=== PATIENT | female | born 1950 | race Caucasian/White ===

== ENCOUNTER 2018-08-04 19:36 | Observation (INO) | payer MEDICARE, OTHER ==
[~2018-08-04] VITALS: Ht 170.2 cm; Wt 71.9 kg
[2018-08-04] MEDS ORDERED: SOD CHLORIDE 0.9% 500 ML IV STA (20:26)
[2018-08-04] MEDS ORDERED: LIDOCAINE 4% CR TOP STA (20:40)
[2018-08-04] MEDS ORDERED: SOD CHLORIDE 0.9% 0 ML IV ONE (22:18)
--- NOTE | 2018-08-04 22:18 | ERD ---
ER Documentation Chief Complaint Chief Complaint GENERALIZED WEAKNESS STARTED 3-4 DAYS AGO; HX BLOOD TRANSFUSION HPI 67-year-old female history of inflammatory bowel disease with history of recurrent blood loss requiring transfusion who presents with generalized weakness and fatigue over the last several days. She states this feels very similar to episodes of blood loss in the past. Patient denies any fevers or chills or chest pain or shortness of breath. Generalized fatigue is noted. ROS All systems reviewed and are negative except as per history of present illness. Allergies Allergies: Coded Allergies: Penicillins (Verified Allergy, Unknown, 08/16/13) aspirin (Verified Allergy, Unknown, 08/06/13) PMhx/Soc History of Surgery: Yes (cholecytectomy) Anesthesia Reaction: No Hx Neurological Disorder: No Hx Respiratory Disorders: Yes (asthma) Hx Cardiac Disorders: Yes (hypotension,) Hx Psychiatric Problems: No Hx Miscellaneous Medical Probl: Yes (colitis; anemia) Hx Alcohol Use: No Hx Substance Use: No Hx Tobacco Use: No Smoking Status: Never smoker Physical Exam Vitals Vital Signs Date Temp Pulse Resp B/P (MAP) Pulse Ox O2 O2 Flow FiO2 Time Delivery Rate 08/04/18 98.3 94 20 112/51 95 19:42 (71) Physical Exam General: Pallor Head: Normocephalic, atraumatic. Eyes: pale conjunctiva ENT: Moist mucous membranes Neck: Supple, no lymphadenopathy Respiratory: Lungs clear bilaterally, no distress Cardiovascular: RRR, no murmurs, rubs, or gallops Abdominal: Soft, non-tender, non-distended, no peritoneal signs : Deferred MSK: No edema, no unilateral swelling, 5/5 strength Neurologic: Alert and oriented, moving all extremities, normal speech, no focal weakness, no cerebellar signs Skin: No rash Psych: Normal mood Result Diagram: 08/04/18220508/04/182205 Results 24 hrs Laboratory Tests Test 08/04/18 22:06 White Blood Count 7.2 10^3/ul Red Blood Count 2.62 10^6/ul Hemoglobin 6.1 g/dl Hematocrit 21.2 % Mean Corpuscular Volume 80.9 fl Mean Corpuscular Hemoglobin 23.3 pg Mean Corpuscular Hemoglobin Concent 28.8 g/dl Red Cell Distribution Width 15.8 % Platelet Count 262 10^3/UL Mean Platelet Volume 9.3 fl Immature Granulocytes % 0.700 % Neutrophils % 69.7 % Lymphocytes % 14.1 % Monocytes % 12.0 % Eosinophils % 2.9 % Basophils % 0.6 % Nucleated Red Blood Cells % 0.0 /100WBC Immature Granulocytes # 0.050 10^3/ul Neutrophils # 5.0 10^3/ul Lymphocytes # 1.0 10^3/ul Monocytes # 0.9 10^3/ul Eosinophils # 0.2 10^3/ul Basophils # 0.0 10^3/ul Nucleated Red Blood Cells # 0.0 10^3/ul Pathologist Review (Hematology) YES Prothrombin Time 13.4 Sec Prothrombin Time Ratio 1.0 INR International Normalized Ratio 1.01 Activated Partial Thromboplast Time 38.3 Sec Sodium Level 137 mmol/L Potassium Level 5.4 mmol/L Chloride Level 106 mmol/L Carbon Dioxide Level 24 mmol/L Anion Gap 7 Blood Urea Nitrogen 39 mg/dl Creatinine 2.34 mg/dl Est Glomerular Filtrat Rate mL/min 21 mL/min Glucose Level 106 mg/dl Calcium Level 8.5 mg/dl Troponin I Pending Current Medications Medications Dose Sig/Chevy Start Time Status Last (Trade) Ordered Route PRN Stop Time Admin Dose Reason Admin Sodium 500 ml @ Q1H STAT 08/04/18 DC 08/04/18 Chloride 500 mls/hr IV 20:26 22:08 08/04/18 21:25 Lidocaine 4 applic ONCE STAT 08/04/18 DC 08/04/18 (Lmx 4% Plus) TOP 20:40 20:50 08/04/18 20:42 Sodium 0 ml @ 0 Q0M ONCE 08/04/18 DC Chloride mls/hr IV 22:18 08/04/18 22:21 25 mg ONCE ONCE 08/04/18 DC Diphenhydrami IV 22:30 ne HCl 08/04/18 22:31 (Benadryl) Ondansetron 4 mg BRIDGE ORDER 08/04/18 HCl (Zofran PRN IV 22:30 Inj) NAUSEA/VOMITI 08/05/18 22:29 NG 650 mg ER BRIDGE 08/04/18 Acetaminophen PRN PO 22:30 (Tylenol .MILD PAIN 08/05/18 22:29 Tab) 1-3 OR TEMP Procedures/MDM EKG, MONITORS, & DIAGNOSTIC IMAGING: EKG: I reviewed and interpreted a 12-lead EKG. Rhythm: Normal sinus rhythm ST Changes: No contiguous ST segment elevations T waves: No contiguous T wave inversions Impression: [No evidence of acute cardiac ischemia] LAB INTERPRETATION: I reviewed the laboratory testing and it shows hemoglobin of 6.1. Worsening renal insufficiency MEDICAL DECISION MAKING: Patient presents with signs and symptoms consistent with symptomatic anemia like ly secondary to her inflammatory bowel disease. Abdominal exam is benign. Low concern for perforation or acute intra-abdominal process. No indication for CT imaging. ER COURSE: * I discussed with the patient and/or family the risks, benefits, alternatives of blood transfusion. This includes allergic reaction and infections including HIV and hepatitis. The patient and/or family were able to verbalize these risks, stated understanding. A document has been signed and placed in the chart. * Typed and crossmatch for 2 units of packed red blood cells. Gentle fluids provided. * Patient will benefit from hospitalization for transfusion and monitoring. CONSULTATION: [None] DISPOSITION PLAN: Accepting care team and consultations: I discussed the current laboratory data, diagnostic imaging and emergency care provided. Admitting team: Dr. Vora Admitting team indication: Insurance directed Departure Diagnosis: Primary Impression: Symptomatic anemia Additional Impressions: Acute renal insufficiency Inflammatory bowel disease Condition: Stable YANIV MTZ MD August 04, 2018 22:18
[2018-08-04] MEDS ORDERED: ACETAMINOPHEN 325 MG TAB PO PRN ×2 (22:30→23:30)
[2018-08-04] MEDS ORDERED: ONDANSETRON 4 MG INJ IV PRN ×2 (22:30→23:30)
[2018-08-04] MEDS ORDERED: DIPHENHYDRAMINE 50 MG INJ IV ONE (22:30)
[2018-08-04] MEDS ORDERED: GABA300C16 PO (23:24)
[2018-08-04] MEDS ORDERED: HYDR-3609 PO (23:24)
[2018-08-04] MEDS ORDERED: CLON0.5T14 PO (23:24)
[2018-08-04] MEDS ORDERED: QUET100T32 PO (23:24)
--- NOTE | 2018-08-04 23:26 | HP ---
Date/Time of Note Date/Time of Note DATE: 08/04/18 TIME: 23:26 Assessment/Plan VTE Prophylaxis SCD contraindicated: low risk/ambulating Pharmacological prophylaxis: NA/contraindicated Pharm contraindication: bleeding Lines/Catheters [facility] [place] [facility] Assessment/Plan Assessment/Plan 1. Chronic recurrent anemia, suspect from a GI loss, as a result of UC -Patient has been receiving blood transfusion chronically for a long time. -Awaiting transfusion of PRBCs -Check ferritin/iron and FOBT -GI consult. In 2013, she had a positive occult blood test, but she declined colonoscopy 2. History of ulcerative colitis: Patient has been receiving infusion, which had to be stopped because she developed right lower extremity ulcer. See HPI for more information -Patient denied BRBPR or dark stool. -Last colonoscopy was 4 months ago. Per patient, she was told there was some inflammation and the polyp was removed, which was benign 3. Acute on CKD: Likely from volume depletion from anemia -Continue blood transfusion -Renal ultrasound and nephrology consult 4. Depression: Continue home meds 5. History of right popliteal thrombosis: Status post IVC filter 6. Right lower extremity ulcer: Per patient due to infusion treatment for UC -Wound care consult. Patient puts mupirocin 2% and 1% steroid cream on the surrounding skin Result Diagram: 08/04/18220508/04/18 220 Results 24hrs Laboratory Tests Test 08/04/18 22:06 White Blood Count 7.2 Red Blood Count 2.62 L Hemoglobin 6.1 *L Hematocrit 21.2 L Mean Corpuscular Volume 80.9 L Mean Corpuscular Hemoglobin 23.3 L Mean Corpuscular Hemoglobin Concent 28.8 L Red Cell Distribution Width 15.8 H Platelet Count 262 Mean Platelet Volume 9.3 Immature Granulocytes % 0.700 H Neutrophils % 69.7 Lymphocytes % 14.1 L Monocytes % 12.0 H Eosinophils % 2.9 Basophils % 0.6 Nucleated Red Blood Cells % 0.0 Immature Granulocytes # 0.050 H Neutrophils # 5.0 Lymphocytes # 1.0 Monocytes # 0.9 Eosinophils # 0.2 Basophils # 0.0 Nucleated Red Blood Cells # 0.0 Pathologist Review (Hematology) YES Prothrombin Time 13.4 Prothrombin Time Ratio 1.0 INR International Normalized Ratio 1.01 Activated Partial Thromboplast Time 38.3 H Sodium Level 137 Potassium Level 5.4 H Chloride Level 106 Carbon Dioxide Level 24 Anion Gap 7 Blood Urea Nitrogen 39 H Creatinine 2.34 H Est Glomerular Filtrat Rate mL/min 21 L Glucose Level 106 Calcium Level 8.5 Troponin I < 0.012 HPI/ROS Admit Date/Time Admit Date/Time Hx of Present Illness This is a 67-year-old female with a history of ulcerative colitis diagnosed in 2004, asthma, CKD, depression, right popliteal DVT status post IVC filter placement, osteoarthritis and recurrent anemia requiring blood transfusions. Patient was sent for anemia and blood transfusion. She has been chronically losing blood possibly from UC. She has right upper chest port for pediatric iron transfusion. She denied dark stool, BRBPR or hematemesis. When she presented to the ER, hemoglobin was 6.1. Awaiting blood transfusion. Creatinine 2.34. Patient was last admitted here in 2013. At that time she had a positive FOBT. She had declined colonoscopy at that time. When I told her that in 2013, she had a positive FOBT, she seemed surprised. Last colonoscopy was 4 months ago. She said she was told she had some inflammation and polyp was removed, which was benign. Patient has been receiving infusion for her UC, which had to be stopped because she developed right lower extremity ulcer. She follows up at [place] for her wound care. She usually puts mupirocin with cortisol around the surrounding area. PMH/Family/Social Past Medical History Medical History: other (See HPI) Medications Current Medications Ondansetron HCl (Zofran Inj) 4 mg BRIDGE ORDER PRN IV NAUSEA/VOMITING; Start 08/04/18 at 22:30; Stop 08/05/18 at 22:29 Acetaminophen (Tylenol Tab) 650 mg ER BRIDGE PRN PO .MILD PAIN 1-3 OR TEMP; Start 08/04/18 at 22:30; Stop 08/05/18 at 22:29 Coded Allergies: Penicillins (Unverified Allergy, Unknown, 08/04/18) aspirin (Unverified Allergy, Unknown, 08/04/18) Past Surgical History Past Surgical Hx: other (See HPI) Family History Significant Family History: no pertinent family hx Social History Alcohol Use: none Smoking Status: Never smoker Drug Use: none Exam/Review of Systems Vital Signs Vitals Vital Signs Date Temp Pulse Resp B/P (MAP) Pulse Ox O2 O2 Flow FiO2 Time Delivery Rate 08/04/18 97 16 119/54 97 Room Air 22:48 (75) 08/04/18 98.3 19:42 Exam Constitutional: other (No acute distress) Head: normocephalic, atraumatic Eyes: EOMI, PERRL Respiratory: clear to auscultation, normal air movement Cardiovascular: other (Tachycardic with regular rhythm) Gastrointestinal: soft, non-tender Extremities: normal pulses, other (Right hickman ulcer) ROCIO GALEANO MD August 04, 2018 23:26
[2018-08-04] MEDS ORDERED: NACL 0.9% 3 ML SYG IV SCH (23:30)
[2018-08-04] MEDS ORDERED: ALBUTEROL/IPRATROPIUM (NEB) 3 ML AMP HHN PRN (23:30)
[2018-08-04 23:32] VITALS: Ht 170.2 cm; Wt 71.9 kg
[2018-08-04 23:47] VITALS: BP 124/53; PULSE 87; RESP 16
[2018-08-05] MEDS ORDERED: DIPHENHYDRAMINE 25 MG CAP PO ONE (00:30)
[2018-08-05 02:52] VITALS: BP 124/56; PULSE 84; RESP 20
[2018-08-05] MEDS ORDERED: HYDR-3980 PO (05:23)
[2018-08-05] MEDS ORDERED: ONDA4TAB8 PO (05:25)
[2018-08-05] MEDS ORDERED: GABA300S PO (05:25)
[2018-08-05] MEDS ORDERED: CLON0.5T PO (05:28)
[2018-08-05] MEDS ORDERED: BACL10TA PO (05:30)
[2018-08-05] MEDS: PANTOPRAZOLE (EC) 40 MG TAB PO SCH (06:11)
[2018-08-05 07:51] VITALS: BP 112/53; PULSE 77; RESP 16
[2018-08-05] MEDS ORDERED: HYDROCODONE/APAP (10/325) TAB PO PRN (08:30)
[2018-08-05] MEDS ORDERED: SOD FERRIC GLUC COMPLX 125 MG in SOD CHLORIDE 0.9% 100 ML IVPB ONE (09:30)
--- NOTE | 2018-08-05 09:39 | PN ---
Date/Time of Note Date/Time of Note DATE: 08/05/18 TIME: 09:35 Assessment/Plan VTE Prophylaxis Risk score (from [facility]0 risk: 0 SCD applied (from [facility]): Yes SCD contraindicated: bilateral LE trauma Pharmacological prophylaxis: NA/contraindicated Pharm contraindication: bleeding Lines/Catheters IV [facility] Peripheral IV Urinary Cath still in place: No Assessment/Plan Problems: (1) Symptomatic anemia Status: Acute Comment: Will also receive dose of IV Ferrlecit. When we have the blood test back she should be able to be discharged today. (2) Inflammatory bowel disease Status: Acute Comment: Noted. This will be managed by her outpatient protective services officer (3) Acute kidney injury superimposed on chronic kidney disease Comment: Follow-up labs pending (4) Kidney disease, chronic, stage III (GFR 30-59 ml/min) Status: Chronic Comment: Noted. (5) Presence of IVC filter Status: Chronic Comment: Noted. (6) Chronic deep vein thrombosis (DVT) of popliteal vein of right lower extremity Status: Chronic Comment: Noted. I have a suspicion this may have relationship with the ulcer on the leg (7) Ulcer of right lower extremity Status: Chronic Comment: As per management of Dr. Vargas who is seeing the patient at the [facility] Qualifiers: Non-pressure ulcer stage: with fat layer exposed Qualified Codes: L97.912 - Non-pressure chronic ulcer of unspecified part of right lower leg with fat layer exposed Result Diagram: 08/04/18220508/04/18 220 Results 24hrs Laboratory Tests Test 08/04/18 22:06 White Blood Count 7.2 Red Blood Count 2.62 L Hemoglobin 6.1 *L Hematocrit 21.2 L Mean Corpuscular Volume 80.9 L Mean Corpuscular Hemoglobin 23.3 L Mean Corpuscular Hemoglobin Concent 28.8 L Red Cell Distribution Width 15.8 H Platelet Count 262 Mean Platelet Volume 9.3 Immature Granulocytes % 0.700 H Neutrophils % 69.7 Lymphocytes % 14.1 L Monocytes % 12.0 H Eosinophils % 2.9 Basophils % 0.6 Nucleated Red Blood Cells % 0.0 Immature Granulocytes # 0.050 H Neutrophils # 5.0 Lymphocytes # 1.0 Monocytes # 0.9 Eosinophils # 0.2 Basophils # 0.0 Nucleated Red Blood Cells # 0.0 Pathologist Review (Hematology) YES Prothrombin Time 13.4 Prothrombin Time Ratio 1.0 INR International Normalized Ratio 1.01 Activated Partial Thromboplast Time 38.3 H Sodium Level 137 Potassium Level 5.4 H Chloride Level 106 Carbon Dioxide Level 24 Anion Gap 7 Blood Urea Nitrogen 39 H Creatinine 2.34 H Est Glomerular Filtrat Rate mL/min 21 L Glucose Level 106 Calcium Level 8.5 Troponin I < 0.012 CC: KISHOR VARGAS DPM; TIGRE ARRIAGA MD ; Subjective 24 Hr Interval Summary Free Text/Dictation Pleasant female who reports she feels better after receiving transfusion. She reports she was sent here by her protective services officer Dr. Ranjit Cheek, and her galvanizer zinc Dr. Tigre Arriaga. Constitutional: no complaints Respiratory: no complaints Cardiovascular: no complaints Gastrointestinal: no complaints Genitourinary: no complaints Exam/Review of Systems Exam Vitals Vital Signs Date Temp Pulse Resp B/P (MAP) Pulse Ox O2 O2 Flow FiO2 Time Delivery Rate 08/05/18 98.3 77 16 112/53 95 07:51 (72) 08/04/18 Room Air 22:48 Intake and Output 08/04/18 08/04/18 08/05/18 1515:00 23:00 07:00 IntakeIntake Total 350 ml BalanceBalance 350 ml Constitutional: alert, oriented Respiratory: clear to auscultation, normal air movement Cardiovascular: regular rate and rhythm, nl pulses Gastrointestinal: soft, nl liver, spleen, non-tender Results Results 24hrs Laboratory Tests Test 08/04/18 22:06 White Blood Count 7.2 Red Blood Count 2.62 L Hemoglobin 6.1 *L Hematocrit 21.2 L Mean Corpuscular Volume 80.9 L Mean Corpuscular Hemoglobin 23.3 L Mean Corpuscular Hemoglobin Concent 28.8 L Red Cell Distribution Width 15.8 H Platelet Count 262 Mean Platelet Volume 9.3 Immature Granulocytes % 0.700 H Neutrophils % 69.7 Lymphocytes % 14.1 L Monocytes % 12.0 H Eosinophils % 2.9 Basophils % 0.6 Nucleated Red Blood Cells % 0.0 Immature Granulocytes # 0.050 H Neutrophils # 5.0 Lymphocytes # 1.0 Monocytes # 0.9 Eosinophils # 0.2 Basophils # 0.0 Nucleated Red Blood Cells # 0.0 Pathologist Review (Hematology) YES Prothrombin Time 13.4 Prothrombin Time Ratio 1.0 INR International Normalized Ratio 1.01 Activated Partial Thromboplast Time 38.3 H Sodium Level 137 Potassium Level 5.4 H Chloride Level 106 Carbon Dioxide Level 24 Anion Gap 7 Blood Urea Nitrogen 39 H Creatinine 2.34 H Est Glomerular Filtrat Rate mL/min 21 L Glucose Level 106 Calcium Level 8.5 Troponin I < 0.012 Medications Medication Current Medications Ondansetron HCl (Zofran Inj) 4 mg BRIDGE ORDER PRN IV NAUSEA/VOMITING; Start 08/04/18 at 22:30; Stop 08/05/18 at 22:29 Acetaminophen (Tylenol Tab) 650 mg ER BRIDGE PRN PO .MILD PAIN 1-3 OR TEMP; Start 08/04/18 at 22:30; Stop 08/05/18 at 22:29 IV Flush (NS 3 ml) 3 ml PER PROTOCOL IV ; Start 08/04/18 at 23:30 Ondansetron HCl (Zofran Inj) 4 mg Q6H PRN IV NAUSEA/VOMITING Last administered on 08/05/18at 04:42; Admin Dose 4 MG; Start 08/04/18 at 23:30 Acetaminophen (Tylenol Tab) 650 mg Q6H PRN PO .PAIN 1-3 OR TEMP; Start 08/04/18 at 23:30 Pantoprazole (Protonix Tab) 40 mg DAILY@06 PO Last administered on 08/05/18at 06:11; Admin Dose 40 MG; Start 08/05/18 at 06:00 Albuterol/ Ipratropium (Duoneb) 3 ml Q2H RESP THERAPY PRN HHN SHORTNESS OF BREATH; Start 08/04/18 at 23:30 Miscellaneous Information Patients own medicat... BID@16 XX ; Start 08/05/18 at 10:00 Acetaminophen/ Hydrocodone Bitart ([place] ()) 1 tab Q6H PRN PO MODERATE PAIN LEVEL 4-6 Last administered on 08/05/18at 08:18; Admin Dose 1 TAB; Start 08/05/18 at 08:30 Ferric Sodium Gluconate Complex 125 mg/Sodium Chloride 100 ml @ 100 mls/hr ONCE ONCE IVPB ; Start 08/05/18 at 09:30; Stop 08/05/18 at 10:29; Status SRIDHRA REYNA MD August 05, 2018 09:38
[2018-08-05] MEDS ORDERED: BACLOFEN 10 MG TAB PO PRN (10:00)
[2018-08-05] MEDS ORDERED: ONDANSETRON 4 MG TAB PO PRN (10:00)
[2018-08-05] MEDS: HYDROCODONE/APAP (10/325) TAB PO SCH ×4 (11:01→23:10)
[2018-08-05] MEDS ORDERED: clonAZEPAM 0.5 MG TAB PO SCH (13:45)
[2018-08-05 14:42] VITALS: BP 92/44; PULSE 72; RESP 16
[2018-08-05] MEDS ORDERED: AL HYDROX/MG TRISILICATE TAB PO PRN (15:00)
[2018-08-05 17:09] VITALS: BP 103/52; PULSE 71
[2018-08-05 20:00] VITALS: BP 95/55; PULSE 77; RESP 18
[2018-08-05] MEDS: GABAPENTIN 300 MG CAP PO SCH (21:14)
[2018-08-05] MEDS: clonAZEPAM 0.5 MG TAB PO SCH (21:14)
[2018-08-06 02:00] VITALS: BP 107/55; PULSE 82; RESP 17
[2018-08-06] MEDS: HYDROCODONE/APAP (10/325) TAB PO SCH ×2 (05:04→09:41)
[2018-08-06] MEDS: PANTOPRAZOLE (EC) 40 MG TAB PO SCH (06:23)
[2018-08-06 07:59] VITALS: BP 96/50; PULSE 78; RESP 17
--- NOTE | 2018-08-06 08:30 | PDOCDIS ---
Discharge Instructions DIAGNOSIS Discharge Diagnosis Severe anemia-critical; inflammatory bowel disease-probable ulcerative colitis; right lower extremity full-thickness wound; history of right-sided DVT; acute k idney injury on chronic kidney disease resolved CONDITION [id number] Patient Condition: [id number] Good HOME CARE INSTRUCTIONS: [id number] Diet Instructions: [id number] Regular ACTIVITY: [id number] Activity Restrictions: [id number] No Restrictions FOLLOW UP/APPOINTMENTS Follow-up Plan Dr. Arnett in 1 week; Dr. Sadler in 2 weeks SRIDHAR CUNNINGHAM MD August 06, 2018 08:30
--- NOTE | 2018-08-06 08:30 | DS ---
Date/Time of Note Date/Time of Note DATE: 08/06/18 TIME: 08:26 Discharge Summary Admission/Discharge Info Admit Date/Time August 04, 2018 at 22:21 Discharge Date/Time August 06, 2018 Discharge Diagnosis Severe anemia-critical; inflammatory bowel disease-probable ulcerative colitis; right lower extremity full-thickness wound; history of right-sided DVT; acute kidney injury on chronic kidney disease resolved Patient Condition: Good Consults Wound care team Procedures Transfusion of packed red blood cells x3 Hx of Present Illness HPI 67-year-old female history of inflammatory bowel disease with history of recurrent blood loss requiring transfusion who presents with generalized w eakness and fatigue over the last several days. She states this feels very similar to episodes of blood loss in the past. Patient denies any fevers or chills or chest pain or shortness of breath. Generalized fatigue is noted. Hx of Present Illness This is a 67-year-old female with a history of ulcerative colitis diagnosed in 2004, asthma, CKD, depression, right popliteal DVT status post IVC filter placement, osteoarthritis and recurrent anemia requiring blood transfusions. Patient was sent for anemia and blood transfusion. She has been chronically losing blood possibly from UC. She has right upper chest port for pediatric iron transfusion. She denied dark stool, BRBPR or hematemesis. When she presented to the ER, hemoglobin was 6.1. Awaiting blood transfusion. Creatinine 2.34. Patient was last admitted here in 2013. At that time she had a positive FOBT. She had declined colonoscopy at that time. When I told her that in 2013, she had a positive FOBT, she seemed surprised. Last colonoscopy was 4 months ago. She said she was told she had some inflammation and polyp was removed, which was benign. Patient has been receiving infusion for her UC, which had to be stopped because she developed right lower extremity ulcer. She follows up at [place] for her wound care. She usually puts mupirocin with cortisol around the surrounding area. Hospital Course Michelle 67-year-old woman admitted on referral for transfusion. She was transfused up and also given 1 dosage of Ferrlecit. She is now stabilized and ready for discharge. Please note wound care team did see her evaluate the wound on her leg and give recommendations and treatment. Now stable for discharge and will follow up with her regular physicians as an outpatient Home Meds Reported Medications Baclofen* (Baclofen*) 10 Mg Tablet, 10 MG PO BID PRN for NEEDED, TAB 08/05/18 Clonazepam (Klonopin) 0.5 Mg Tablet, 1 MG PO DAILY PRN for NEEDED, TAB 08/05/18 Ondansetron Hcl* (Zofran*) 4 Mg Tablet, 4 MG PO TID PRN for NAUSEA AND OR VOMITING, TAB 08/05/18 Hydrocodone/Acetaminophen ([place] 10-325 Tablet) 1 Each Tablet, 1 EACH PO TID PRN for NEEDED, TAB 08/05/18 Clonazepam* (Clonazepam*) 0.5 Mg Tablet, 0.5 MG PO BID for ANXIETY, TAB 08/04/18 Quetiapine Fumarate* (Quetiapine Fumarate*) 100 Mg Tablet, 100 MG PO DAILY for 30 Days, #30 08/04/18 Gabapentin* (Gabapentin*) 300 Mg Capsule, 300 MG PO BID for 30 Days, #60 08/04/18 Hydrocodone/Acetaminophen (Hydrocodone-Acetamin 10-325 mg) 1 Each Tablet, 1 TAB PO Q6H for PAIN 08/04/18 Follow-up Plan Dr. Vargas in 1 week; Dr. Arriaga in 2 weeks Primary Care Provider Not On Staff Doctor Pending Labs Laboratory Tests Test 08/05/18 09:47 08/05/18 09:48 08/05/18 15:55 Iron Level 173 ug/dl (35-150) Total Iron Binding 297 ug/dl (241-421) Capacity Percent Iron 58 % SAT (22-52) Saturation White Blood Count 4.8 10^3/ul (4.8-10.8) Red Blood Count 3.45 10^6/ul (4.20-5.40 ) Hemoglobin 8.6 g/dl (12.0-16.0) Hematocrit 28.9 % (37.0-47.0) Mean Corpuscular 83.8 Volume fl (82.0-101.0) Mean Corpuscular 24.9 Hemoglobin pg (29.0-33.0) Mean Corpuscular 29.8 Hemoglobin Concent g/dl (32.0-37.0) Red Cell 16.2 % (11.5-14.5) Distribution Width Platelet Count 280 10^3/UL (140-415) Mean Platelet 9.8 fl (7.4-10.4) Volume Immature 1.000 Granulocytes % % (0.001-0.429) Neutrophils % 62.6 % (39.0-77.0) Lymphocytes % 17.0 % (15.0-51.0) Monocytes % 16.1 % (0.0-11.0) Eosinophils % 2.3 % (0.0-7.0) Basophils % 1.0 % (0.0-2.0) Nucleated Red Blood 0.0 Cells % /100WBC (0.0-0.0) Immature 0.050 Granulocytes # 10^3/ul (0.0-0.031 ) Neutrophils # 3.0 10^3/ul (1.6-7.5) Lymphocytes # 0.8 10^3/ul (0.8-2.9) Monocytes # 0.8 10^3/ul (0.3-0.9) Eosinophils # 0.1 10^3/ul (0.0-0.5) Basophils # 0.1 10^3/ul (0.0-0.1) Nucleated Red Blood 0.0 Cells # 10^3/ul (0.0-0.0) Sodium Level 140 mmol/L (135-144) Potassium Level 5.0 mmol/L (3.5-5.1) Chloride Level 113 mmol/L (97-110) Carbon Dioxide 22 mmol/L (21-31) Level Anion Gap 5 (5-13) Blood Urea 29 mg/dl (7-20) Nitrogen Creatinine 1.82 mg/dl (0.44-1.00) Est Glomerular 28 mL/min (>60) Filtrat Rate mL/min Glucose Level 95 mg/dl (70-220) Hemoglobin A1c 5.7 % (0-5.9) Calcium Level 8.4 mg/dl (8.4-10.2) Phosphorus Level 3.8 mg/dl (2.5-4.9) Magnesium Level 2.1 mg/dl (1.7-2.5) Ferritin 205.0 ng/ml (11.1-264.0) Total Bilirubin 0.4 mg/dl (0.2-1.3) Direct Bilirubin 0.00 mg/dl (0.00-0.20) Indirect Bilirubin 0.4 mg/dl (0-1.1) Aspartate Amino 13 IU/L (15-46) Transf (AST/SGOT) Alanine 14 IU/L (13-69) Aminotransferase (A LT/SGPT) Alkaline 91 IU/L (42-121) Phosphatase Total Protein 7.0 g/dl (6.1-8.1) Albumin 3.1 g/dl (3.3-4.9) Globulin 3.90 g/dl (1.3-3.2) Albumin/Globulin 0.79 Ratio Thyroid Stimulating 0.537 Hormone (TSH) MIU/L (0.465-4.680 ) Stool Occult Blood POSITIVE (NEGATIVE ) Copies To: CC: KISHOR VARGAS DPM; TIGRE ARRIAGA MD ; SRIDHAR CUNNINGHAM MD August 06, 2018 08:30
[2018-08-06] MEDS ORDERED: QUETIAPINE 100 MG TAB PO SCH (09:00)
[2018-08-06] MEDS: clonAZEPAM 0.5 MG TAB PO SCH (09:36)
[2018-08-06] MEDS: GABAPENTIN 300 MG CAP PO SCH (09:41)
[2018-08-06] MEDS ORDERED: HEPARIN (100 UNITS/ML) 5 ML SYG CATHETER ONE (12:00)
[2018-08-07] MEDS ORDERED: HYDROCORTISONE 1% 28.35 GM OINT TOP SCH (09:00)
[2018-08-07] MEDS ORDERED: MUPIROCIN 2% 22 GM OINT TOP SCH (09:00)
== END 2018-08-06 13:15 | disposition home or self-care (01) ==
LOC: E/R 19:36 → PP2 22:21
PROVIDERS: ADMIT Internal Medicine; ATTEND Internal Medicine
DX: D64.9 Anemia, unspecified (principal); K51.90 Ulcerative colitis, unspecified, without complications; N18.3 Chronic kidney disease, stage 3 (moderate); N17.9 Acute kidney failure, unspecified; L97.919 Non-pressure chronic ulcer of unspecified part of right lower leg with unspecified severity; F32.9 Major depressive disorder, single episode, unspecified; J45.909 Unspecified asthma, uncomplicated; Z86.718 Personal history of other venous thrombosis and embolism
CPT/HCPCS: 36415; 36430; 76775; 80048; 80053; 82270; 82728; 83036; 83540; 83735; 84100; 84443; 84484; 85025; 85610; 85730; 86850; 86900; 86901; 86920; 93005; 97161; 99285; G0378; J1642; J2405; J2916; J7040; P9016

== ENCOUNTER 2018-08-25 13:21 | Inpatient (IN) | payer MEDICARE, OTHER ==
[~2018-08-25] VITALS: Ht 170.2 cm; Wt 66.0 kg
[~2018-08-25 13:21] MED LIST: BACL10TA PO; CLON0.5T PO; CLON0.5T14 PO; GABA300C16 PO; HYDR-3609 PO; HYDR-3980 PO; ONDA4TAB8 PO; QUET100T32 PO
--- NOTE | 2018-08-25 14:47 | ERD ---
ER Documentation Chief Complaint Chief Complaint L hand numbness X 2 days HPI 67-year-old female with a history of cervical spine problems, ulcerative colitis, and arthritis presenting with complaints of left hand weakness and numbness that started 2 days ago when she woke up from sleep. She did not pay much attention to this. Today she went to her primary care doctor, and saw an PRELOAD SUPERVISOR, who was concerned about her left hand weakness and numbness and sent her to the ER for further evaluation. Patient states that the numbness is improving. Initially it was the entire hand, but now it is mostly in her thumb and her index finger. She denies any numbness above the wrist. She has chronic pain and muscle spasms in bilateral upper extremities due to her C-spine problems. She denies any recent neck injury. No increasing neck pain. No difficulty moving head or neck. She has chronic pain in her right shoulder that is unchan ged. She denies any headache, vision disturbance, weakness or numbness in any other extremities. ROS All systems reviewed and are negative except as per history of present illness. Medications Home Meds Reported Medications Baclofen* (Baclofen*) 10 Mg Tablet, 10 MG PO BID PRN for NEEDED, TAB 08/05/18 Clonazepam (Klonopin) 0.5 Mg Tablet, 1 MG PO DAILY PRN for NEEDED, TAB 08/05/18 Ondansetron Hcl* (Zofran*) 4 Mg Tablet, 4 MG PO TID PRN for NAUSEA AND OR VOMITING, TAB 08/05/18 Hydrocodone/Acetaminophen ([place] 10-325 Tablet) 1 Each Tablet, 1 EACH PO TID PRN for NEEDED, TAB 08/05/18 Clonazepam* (Clonazepam*) 0.5 Mg Tablet, 0.5 MG PO BID for ANXIETY, TAB 08/04/18 Quetiapine Fumarate* (Quetiapine Fumarate*) 100 Mg Tablet, 100 MG PO DAILY for 30 Days, #30 08/04/18 Gabapentin* (Gabapentin*) 300 Mg Capsule, 300 MG PO BID for 30 Days, #60 08/04/18 Hydrocodone/Acetaminophen (Hydrocodone-Acetamin 10-325 mg) 1 Each Tablet, 1 TAB PO Q6H for PAIN 08/04/18 Allergies Allergies: Coded Allergies: cat dander (Verified Allergy, Intermediate, 08/25/18) SOB, Rash chlorhexidine (Verified Allergy, Intermediate, 08/25/18) rash, doxycycline (Verified Allergy, Intermediate, 08/25/18) rash melon (Verified Allergy, Intermediate, 08/25/18) honeydew - SOB Penicillins (Unverified Allergy, Unknown, 08/25/18) aspirin (Unverified Allergy, Unknown, 08/25/18) furosemide (Verified Allergy, Unknown, 08/25/18) PMhx/Soc History of Surgery: Yes (Cholecystectomy, IVC filter ) Anesthesia Reaction: No Hx Neurological Disorder: No Hx Respiratory Disorders: Yes (Asthma ) Hx Cardiac Disorders: Yes (Hypotension ) Hx Psychiatric Problems: No Hx Miscellaneous Medical Probl: Yes (ulcerative colitis, asthma, CKD, depression, R popliteal DVT s/p IVC filter) Hx Alcohol Use: No Hx Substance Use: No Hx Tobacco Use: No Smoking Status: Never smoker FmHx Family History: No diabetes Physical Exam Vitals Vital Signs Date Temp Pulse Resp B/P (MAP) Pulse Ox O2 O2 Flow FiO2 Time Delivery Rate 08/25/18 97.8 81 20 93/50 (64) 96 Room Air 14:37 08/25/18 98.6 85 18 102/55 98 13:30 (71) Physical Exam Const: No acute distress Head: Atraumatic Eyes: Normal Conjunctiva, PERRLA, EOMI ENT: Normal External Ears, Nose and Mouth. Neck: Full range of motion. No meningismus. Bilateral paraspinal muscle pain. No midline tenderness Resp: Clear to auscultation bilaterally Cardio: Regular rate and rhythm, no murmurs. 2+ distal pulses in all 4 extremities Abd: Soft, non tender, non distended. Normal bowel sounds Skin: No petechiae or rashes Back: No midline or flank tenderness Ext: No cyanosis, or edema Neur: Awake and alert, cranial nerves intact, normal speech. Strength 4 +/5 in left hand. Otherwise motor strength 5 out of 5 in all other extremities and in all other distributions of the left upper extremity. Left upper extremity with diffuse decreased sensation to painful stimuli, however intact to light touch. Psych: Normal Mood and Affect Result Diagram: 08/25/18 1443 08/25/18 1443 Results 24 hrs Laboratory Tests Test 08/25/18 14:37 08/25/18 14:43 Bedside Glucose 90 mg/dL White Blood Count 8.0 10^3/ul Red Blood Count 3.71 10^6/ul Hemoglobin 9.7 g/dl Hematocrit 32.6 % Mean Corpuscular Volume 87.9 fl Mean Corpuscular Hemoglobin 26.1 pg Mean Corpuscular Hemoglobin Concent 29.8 g/dl Red Cell Distribution Width 21.8 % Platelet Count 284 10^3/UL Mean Platelet Volume 9.2 fl Immature Granulocytes % 0.400 % Neutrophils % 68.8 % Lymphocytes % 17.8 % Monocytes % 9.5 % Eosinophils % 2.9 % Basophils % 0.6 % Nucleated Red Blood Cells % 0.0 /100WBC Immature Granulocytes # 0.030 10^3/ul Neutrophils # 5.5 10^3/ul Lymphocytes # 1.4 10^3/ul Monocytes # 0.8 10^3/ul Eosinophils # 0.2 10^3/ul Basophils # 0.1 10^3/ul Nucleated Red Blood Cells # 0.0 10^3/ul Prothrombin Time 13.8 Sec Prothrombin Time Ratio 1.1 INR International Normalized Ratio 1.05 Activated Partial Thromboplast Time 29.2 Sec Sodium Level 137 mmol/L Potassium Level 6.0 mmol/L Chloride Level 109 mmol/L Carbon Dioxide Level 18 mmol/L Anion Gap 10 Blood Urea Nitrogen 60 mg/dl Creatinine 2.74 mg/dl Est Glomerular Filtrat Rate mL/min 17 mL/min Glucose Level 95 mg/dl Calcium Level 9.2 mg/dl Troponin I < 0.012 ng/ml Current Medications Medications Dose Sig/Chevy Start Time Status Last (Trade) Ordered Route PRN Stop Time Admin Dose Reason Admin Sodium 1,000 ml @ Q1H STAT 08/25/18 DC 08/25/18 Chloride 1,000 mls/hr IV 15:53 16:57 08/25/18 16:52 Albuterol 15 mg ONCE STAT 08/25/18 DC 08/25/18 (Proventil INH 15:53 16:55 0.5% (Neb)) 08/25/18 15:54 Insulin 10 unit ONCE STAT 08/25/18 DC 08/25/18 Human IVP 15:53 16:58 Regular 08/25/18 15:54 (Humulin R) Dextrose 50 ml ONCE ONCE 08/25/18 DC 08/25/18 (D50w IV 16:00 17:01 Syringe) 08/25/18 16:01 Dextrose ONCE PRN 08/25/18 (D50w IV DECREASED 16:00 Syringe) GLUCOSE Procedures/MDM EMERGENT LABS AND DIAGNOSTIC STUDIES: Lab Results above were reviewed and interpreted by me. CBC: Mild anemia, no evidence of infection BMP: Elevated BUN and creatinine from baseline, consistent with acute on chronic renal insufficiency. Hyperkalemic. Mild acidosis. Troponin within normal limits, not indicative of cardiac ischemia 12-lead EKG was interpreted by Chandrakant Colin MD: Sinus rhythm with PVCs Normal axis Normal intervals No acute ST or T wave changes suggestive of acute ischemia or STEMI. Radiology Results as interpreted by Radiology below were reviewed by Lisbeth Colin MD: Chest x-ray shows no acute abnormalities CT head: small focus of hyperdensity within the left caudate. This has similar density to the to some of the less calcified hyperdensities within the basal ganglia which can represent early calcification however a small focus of intraparenchymal hemorrhage cannot be excluded. A short-term follow-up scan in 4-6 hours can be obtained to reevaluate. The rest of the brain otherwise demonstrates mild microvascular changes. Initial Nursing notes reviewed. Previous Medical Records requested via the Electronic Health Record. EMERGENCY DEPARTMENT COURSE / MEDICAL DECISION MAKING: Patient is presenting with left hand weakness and numbness for the past 3 days. Vitals are unremarkable upon evaluation. Differential does include peripheral neuropathy, cervical radiculopathy, acute stroke, among other etiologies. Given her age and risk factors, CT head was done showing some abnormality. But after speaking with the radiologist, it is unclear if this abnormality would be the cause of her symptoms. Patient was also noted to have hyperkalemia and acute on chronic renal insufficiency on labs. There was no associated EKG changes. She was treated with insulin, dextrose, albuterol. Patient will be admitted for further work-up and management of her left hand weakness as well as her acute renal failure with hyperkalemia. Critical Care Time: 35 minutes Treatments/Evaluations: Close monitoring and treatment of unstable vital signs, cardiorespiratory, and neurologic status, while maintaining tight balance of fluid, respiratory, and cardiac interventions. This time includes discussing the case with the patient and the patients family. This time does not include all procedures stated elsewhere in this record. This time also includes reviewing old records, labs and radiological studies. This time includes examining and re- examining the patient. Additionally, this time also includes arranging care with admitting and consulting physicians. Accepting Care Team: Current data and ongoing care discussed. Time: Time of admission Primary Provider: Dr. Fredis Horan Diagnosis: Primary Impression: Acute kidney injury superimposed on chronic kidney disease Additional Impressions: Left hand weakness Numbness of left hand Hyperkalemia Condition: TEMI Johnson MD August 25, 2018 14:47
[2018-08-25] MEDS ORDERED: INSULIN REGULAR, HUMAN 100 UNIT/1 ML 3ML VIAL IVP STA (15:53)
[2018-08-25] MEDS ORDERED: SOD CHLORIDE 0.9% 1,000 ML IV STA (15:53)
[2018-08-25] MEDS ORDERED: ALBUTEROL 0.5% (NEB) 2.5 MG/0.5 ML AMP INH STA (15:53)
[2018-08-25] MEDS ORDERED: DEXTROSE 50% 50 ML SYRINGE IV ONE (16:00)
[2018-08-25] MEDS ORDERED: DEXTROSE 50% 50 ML SYRINGE IV PRN (16:00)
[2018-08-25] MEDS ORDERED: FLUOCINONIDE 0.05% 15 GM CR TOP ONE (16:30)
[2018-08-25] MEDS ORDERED: BACLOFEN 10 MG TAB PO PRN (16:30)
[2018-08-25] MEDS ORDERED: FLUOCINONIDE 0.05%/EMOLL 15 GM CR TOP ONE (16:30)
[2018-08-25] MEDS ORDERED: ONDANSETRON 4 MG INJ IV PRN (16:30)
[2018-08-25] MEDS ORDERED: ACETAMINOPHEN 325 MG TAB PO PRN (16:30)
--- NOTE | 2018-08-25 16:53 | HP ---
Date/Time of Note Date/Time of Note DATE: 08/25/18 TIME: 16:48 Assessment/Plan VTE Prophylaxis SCD applied (from Nsg): Yes Pharmacological prophylaxis: heparin Assessment/Plan Hospital Course 67 yo female with CKD III who presents wiht numbness and weakness of L hand over past few days - Likley peripheral neuropathy but stroke possible. Will obtain MRI to evaluate - MRI cervical spine CKD III: - Trend creatinine - Supportive care Chronic pain syndrome: - continue [place] q8h, baclofen Dc pending MRI Result Diagram: 08/25/18 1443 08/25/18 1443 Results 24hrs Laboratory Tests Test 08/25/18 14:37 08/25/18 14:43 Bedside Glucose 90 White Blood Count 8.0 # Red Blood Count 3.71 L Hemoglobin 9.7 L Hematocrit 32.6 L Mean Corpuscular Volume 87.9 Mean Corpuscular Hemoglobin 26.1 L Mean Corpuscular Hemoglobin Concent 29.8 L Red Cell Distribution Width 21.8 #H Platelet Count 284 Mean Platelet Volume 9.2 Immature Granulocytes % 0.400 Neutrophils % 68.8 Lymphocytes % 17.8 Monocytes % 9.5 Eosinophils % 2.9 Basophils % 0.6 Nucleated Red Blood Cells % 0.0 Immature Granulocytes # 0.030 Neutrophils # 5.5 Lymphocytes # 1.4 Monocytes # 0.8 Eosinophils # 0.2 Basophils # 0.1 Nucleated Red Blood Cells # 0.0 Prothrombin Time 13.8 Prothrombin Time Ratio 1.1 INR International Normalized Ratio 1.05 Activated Partial Thromboplast Time 29.2 Sodium Level 137 Potassium Level 6.0 H Chloride Level 109 Carbon Dioxide Level 18 L Anion Gap 10 Blood Urea Nitrogen 60 H Creatinine 2.74 H Est Glomerular Filtrat Rate mL/min 17 L Glucose Level 95 Calcium Level 9.2 Troponin I < 0.012 HPI/ROS Admit Date/Time Admit Date/Time Hx of Present Illness 67 yo female with CKD III, venous stasis disease who presents wtih 2 days L hand numbness States she has developed numbness and weakness in her left hand. Spontaneously developed. Having weakness in affected hand as well. No symptoms above the wrist. No other focal numbness or weakness anywhere. MACHINE TOOL OPERATOR at PMD office sent her here for stroke rule out. ROS Constitutional: no complaints, improved Eyes: no complaints ENT: no complaints Respiratory: no complaints Cardiovascular: no complaints Gastrointestinal: no complaints Genitourinary: no complaints Musculoskeletal: no complaints Skin: no complaints Neurologic: no complaints Endocrine: no complaints Lymphatic: no complaints Psychological: no complaints, nl mood/affect Immunologic: no complaints PMH/Family/Social Past Medical History Medical History: renal disease Medications Current Medications Sodium Chloride 1,000 ml @ 1,000 mls/hr Q1H STAT IV ; Start 08/25/18 at 15:53; Stop 08/25/18 at 16:52 Dextrose (D50w Syringe) ONCE PRN IV DECREASED GLUCOSE; Start 08/25/18 at 16:00 Ondansetron HCl (Zofran Inj) 4 mg ER BRIDGE PRN IV NAUSEA/VOMITING; Start 08/25/18 at 16:30; Stop 08/26/18 at 16:29 Acetaminophen (Tylenol Tab) 650 mg ER BRIDGE PRN PO .MILD PAIN 1-3 OR TEMP; Start 08/25/18 at 16:30; Stop 08/26/18 at 16:29 Coded Allergies: cat dander (Verified Allergy, Intermediate, 08/25/18) SOB, Rash chlorhexidine (Verified Allergy, Intermediate, 08/25/18) rash, doxycycline (Verified Allergy, Intermediate, 08/25/18) rash melon (Verified Allergy, Intermediate, 08/25/18) honeydew - SOB Penicillins (Unverified Allergy, Unknown, 08/25/18) aspirin (Unverified Allergy, Unknown, 08/25/18) furosemide (Verified Allergy, Unknown, 08/25/18) Past Surgical History Past Surgical Hx: no surgical history, noncontributory, other Family History Significant Family History: no pertinent family hx Social History Alcohol Use: none Smoking Status: Never smoker Drug Use: none Exam/Review of Systems Vital Signs Vitals Vital Signs Date Temp Pulse Resp B/P (MAP) Pulse Ox O2 O2 Flow FiO2 Time Delivery Rate 08/25/18 97.8 81 20 93/50 (64) 96 Room Air 14:37 Exam Exam Aox3 Odd affect, verbose RRR CTAB Soft nt nd Neuro: CNII-XII in tact. L arm 5/5 at shoulder, wrist and elbow. Weakness present in right hand in all digits. Numbness to light touch in fingers, thumb unaffected. Tinels/phalens negative MILGROMNEHA MD August 25, 2018 16:53
[2018-08-25] MEDS ORDERED: NACL 0.9% 3 ML SYG IV SCH (17:00)
[2018-08-25] MEDS: HYDROCODONE/APAP (10/325) TAB PO SCH ×2 (17:09→21:24)
[2018-08-25 18:00] VITALS: BP 100/49; PULSE 97; RESP 18; Ht 170.2 cm; Wt 66.0 kg
[2018-08-25 18:07] VITALS: PULSE 98
[2018-08-25] MEDS ORDERED: clonAZEPAM 0.5 MG TAB PO PRN (18:30)
[2018-08-25 20:00] VITALS: BP 91/48; PULSE 93; PULSE 94; RESP 18
[2018-08-25] MEDS: clonAZEPAM 0.5 MG TAB PO SCH ×2 (21:00→22:37)
[2018-08-25] MEDS: QUETIAPINE 100 MG TAB PO SCH (22:48)
[2018-08-25 23:57] VITALS: BP 88/49; PULSE 78; RESP 18
[2018-08-26] VITALS (10 sets, daily range): BP systolic 87–104; BP diastolic 50–57; PULSE 77–110; RESP 18
[2018-08-26] MEDS: HYDROCODONE/APAP (10/325) TAB PO SCH ×4 (04:30→22:30)
[2018-08-26] MEDS ORDERED: QUETIAPINE 100 MG TAB PO SCH (09:00)
[2018-08-26] MEDS: clonAZEPAM 0.5 MG TAB PO SCH ×2 (09:00→20:59)
[2018-08-26] MEDS: GABAPENTIN 300 MG CAP PO SCH (20:59)
[2018-08-26] MEDS: QUETIAPINE 100 MG TAB PO SCH (20:59)
[2018-08-27] VITALS: BP 95/50; PULSE 91; PULSE 95; RESP 18
[2018-08-27 04:00] VITALS: BP 97/56; PULSE 84; PULSE 86; RESP 18
[2018-08-27] MEDS: HYDROCODONE/APAP (10/325) TAB PO SCH ×2 (04:30→08:50)
[2018-08-27 07:30] VITALS: BP 87/54; PULSE 93
[2018-08-27 08:08] VITALS: PULSE 88
[2018-08-27] MEDS: clonAZEPAM 0.5 MG TAB PO SCH (08:50)
[2018-08-27] MEDS: GABAPENTIN 300 MG CAP PO SCH (08:50)
--- NOTE | 2018-08-27 09:23 | CONSI ---
Assessment/Plan Assessment/Plan Assessment/Plan (Recall) 67 F c/ ulcerative colitis, CKD, and other comorbidities, who presents for evaluation of L hand weakness and numbness x several days. The clinical picture was most ominously concerning for acute stroke; however, MRI brain is reassuringly negative for acute intracranial pathology.. Cervical spine MRI is notable for mild left sided degenerative changes, which could be contributing.. P: Continued medical management and supportive care per primary PT/OT as necessary Will follow clinically Consultation Date/Type/Reason Admit Date/Time Type of Consult Neurology Reason for Consultation left hand weakness and numbness Requesting Provider: NEHA YADAV MD Date/Time of Note DATE: 08/27/18 TIME: 09:18 Hx of Present Illness 67 F c/ Ulcerative colitis and other comorbidities, presents for evaluation of left hand weakness and numbness. 3 days. Gradually improving.. Never before.. No asa at home No other new neurologic Sx.. + R leg wound + R shoulder pain, chronic Objective Exam Vitals Vital Signs Date Temp Pulse Resp B/P (MAP) Pulse Ox O2 O2 Flow FiO2 Time Delivery Rate 08/27/18 88 08:08 08/27/18 98.6 87/54 (65) 97 07:30 08/27/18 18 04:00 08/26/18 Room Air 16:05 08/25/18 21 16:59 Intake and Output 08/26/18 08/26/18 08/27/18 1515:00 23:00 07:00 IntakeIntake Total 1000 ml 850 ml BalanceBalance 1000 ml 850 ml Exam PE: Gen Appearance: No Apparent Distress HEENT: Normocephalic Cardiovascular: Regular rate Lungs: Clear bilaterally Abdomen: Soft Extremities: Dry; R leg dressed NE: The patient was alert and oriented. Language was normal. Fund of knowledge was adequate.. Pupils were equal and reactive to light. There was no afferent pupillary defect. Visual dumont were normal. Funduscopic examination was limited. Extra-ocular movements were full. Ptosis was absent. There was no nystagmus. Facial sensation was normal. Face was symmetric with normal strength. Hearing was intact. Palate movements were normal. Neck strength was normal. There was normal tongue bulk and speed of movement. Tone was normal. Muscle bulk was reduced.. I did not see fasciculations. RUE was proximal pain-limited... Other limbs were strong Vibration sensation was decreased in the L lower extremity. Temperature and pinprick sensation was symmetric. Rapid alternating movements were normal. There was no dysmetria. There was no intention tremor. Gait was deferred due to bedrest. Arm and leg reflexes were brisk.. Galloway's sign was absent. Plantar responses were flexor. Results Result Diagram: 08/26/1851408/26/18514 Past Medical History Medical History: renal disease Home Meds Reported Medications Baclofen* (Baclofen*) 10 Mg Tablet, 10 MG PO BID PRN for NEEDED, TAB 08/05/18 Clonazepam (Klonopin) 0.5 Mg Tablet, 1 MG PO DAILY PRN for NEEDED, TAB 08/05/18 Ondansetron Hcl* (Zofran*) 4 Mg Tablet, 4 MG PO TID PRN for NAUSEA AND OR VOMITING, TAB 08/05/18 Hydrocodone/Acetaminophen ([place] 10-325 Tablet) 1 Each Tablet, 1 EACH PO TID PRN for NEEDED, TAB 08/05/18 Clonazepam* (Clonazepam*) 0.5 Mg Tablet, 0.5 MG PO BID for ANXIETY, TAB 08/04/18 Quetiapine Fumarate* (Quetiapine Fumarate*) 100 Mg Tablet, 100 MG PO DAILY for 30 Days, #30 08/04/18 Gabapentin* (Gabapentin*) 300 Mg Capsule, 300 MG PO BID for 30 Days, #60 08/04/18 Hydrocodone/Acetaminophen (Hydrocodone-Acetamin 10-325 mg) 1 Each Tablet, 1 TAB PO Q6H for PAIN 08/04/18 Medications Current Medications Dextrose (D50w Syringe) ONCE PRN IV DECREASED GLUCOSE; Start 08/25/18 at 16:00 Baclofen (Lioresal) 10 mg BID PRN PO NEEDED Last administered on 08/26/18at 14:56; Admin Dose 10 MG; Start 08/25/18 at 16:30 Acetaminophen/ Hydrocodone Bitart ([place] (10/325)) 1 tab Q6H PO Last administered on 08/27/18at 08:50; Admin Dose 1 TAB; Start 08/25/18 at 16:30 IV Flush (NS 3 ml) 3 ml PER PROTOCOL IV ; Start 08/25/18 at 17:00 Clonazepam (Klonopin) 1 mg DAILY PRN PO anxiety Last administered on 08/25/18at 18:31; Admin Dose 1 MG; Start 08/25/18 at 18:30 Clonazepam (Klonopin) 0.5 mg BID PO Last administered on 08/27/18at 08:50; Admin Dose 0.5 MG; Start 08/25/18 at 21:00 Quetiapine Fumarate (Seroquel) 100 mg HS PO Last administered on 08/26/18at 20:59; Admin Dose 100 MG; Start 08/25/18 at 23:00 Gabapentin (Neurontin) 300 mg TID PO Last administered on 08/27/18at 08:50; Admin Dose 300 MG; Start 08/26/18 at 21:00 Allergies: Coded Allergies: cat dander (Verified Allergy, Intermediate, 08/25/18) SOB, Rash chlorhexidine (Verified Allergy, Intermediate, 08/25/18) rash, doxycycline (Verified Allergy, Intermediate, 08/25/18) rash melon (Verified Allergy, Intermediate, 08/25/18) honeydew - SOB Penicillins (Unverified Allergy, Unknown, 08/25/18) aspirin (Unverified Allergy, Unknown, 08/25/18) furosemide (Verified Allergy, Unknown, 08/25/18) Past Surgical History Past Surgical Hx: no surgical history, noncontributory, other Social History Alcohol Use: none Smoking Status: Never smoker Drug Use: none FELTON HOANG Aug 27, 2018 09:23
[2018-08-27 11:28] VITALS: BP 87/51; PULSE 81; RESP 17
[2018-08-27 12:08] VITALS: PULSE 83
[2018-08-27] MEDS ORDERED: HEPARIN (100 UNITS/ML) 5 ML SYG CATHETER ONE (13:30)
--- NOTE | 2018-08-27 13:47 | PN ---
Date/Time of Note Date/Time of Note DATE: 08/26/18 TIME: 13:46 Assessment/Plan VTE Prophylaxis Risk score (from Nsg)>0 risk: 5 SCD applied (from Nsg): Yes Pharmacological prophylaxis: heparin Lines/Catheters IV Catheter Type (from Nrsg): portacath Assessment/Plan Hospital Course 67 yo female with CKD III who presents wiht numbness and weakness of L hand over past few days - Likley peripheral neuropathy but stroke possible. Will obtain MRI to evaluate - MRI cervical spine CKD III: - Trend creatinine - Supportive care Chronic pain syndrome: - continue [place] q8h, baclofen Dc pending MRI Result Diagram: 08/26/18 0515 08/26/18 0515 Subjective 24 Hr Interval Summary Free Text/Dictation Symptoms improved a bit Await MRI results Exam/Review of Systems Exam Vitals Vital Signs Date Temp Pulse Resp B/P (MAP) Pulse Ox O2 O2 Flow FiO2 Time Delivery Rate 08/27/18 83 12:08 08/27/18 98.2 17 87/51 (63) 98 11:28 08/26/18 Room Air 16:05 08/25/18 21 16:59 Intake and Output 08/26/18 08/26/18 08/27/18 1515:00 23:00 07:00 IntakeIntake Total 1000 ml 850 ml BalanceBalance 1000 ml 850 ml Constitutional: alert, oriented, well developed Psych: no complaints, nl mood/affect Head: normocephalic, atraumatic Eyes: nl conjunctiva, EOMI, nl lids, nl sclera, PERRL ENMT: nl external ears & nose, nl lips & teeth, nl nasal mucosa & septum Neck: supple, non-tender Respiratory: clear to auscultation, normal air movement Cardiovascular: regular rate and rhythm, nl pulses Gastrointestinal: soft, nl liver, spleen, non-tender Musculoskeletal: nl extremities to inspection, nl gait and stance Extremities: normal pulses Neurological: DATA COLLECTOR II-XII intact, nl mental status, nl speech, nl strength Skin: nl turgor; No rash or lesions Lymph: nl lymph nodes Medications Medication Current Medications Dextrose (D50w Syringe) ONCE PRN IV DECREASED GLUCOSE; Start 08/25/18 at 16:00 Baclofen (Lioresal) 10 mg BID PRN PO NEEDED Last administered on 08/26/18at 14:56; Admin Dose 10 MG; Start 08/25/18 at 16:30 Acetaminophen/ Hydrocodone Bitart ([place] (10/325)) 1 tab Q6H PO Last administered on 08/27/18 08:50; Admin Dose 1 TAB; Start 08/25/18 at 16:30 IV Flush (NS 3 ml) 3 ml PER PROTOCOL IV ; Start 08/25/18 at 17:00 Clonazepam (Klonopin) 1 mg DAILY PRN PO anxiety Last administered on 08/25/18 18:31; Admin Dose 1 MG; Start 08/25/18 at 18:30 Clonazepam (Klonopin) 0.5 mg BID PO Last administered on 08/27/18 08:50; Admin Dose 0.5 MG; Start 08/25/18 at 21:00 Quetiapine Fumarate (Seroquel) 100 mg HS PO Last administered on 08/26/18 20:59; Admin Dose 100 MG; Start 08/25/18 at 23:00 Gabapentin (Neurontin) 300 mg TID PO Last administered on 08/27/18 08:50; Admin Dose 300 MG; Start 08/26/18 at 21:00 NEHA YADAV MD Aug 27, 2018 13:47
--- NOTE | 2018-08-27 13:48 | DS ---
Date/Time of Note Date/Time of Note DATE: 08/27/18 TIME: 13:47 Discharge Summary Admission/Discharge Info Admit Date/Time August 25, 2018 at 16:12 Discharge Date/Time Discharge Diagnosis Neuropathy Patient Condition: Stable Hx of Present Illness 67 yo female with CKD III, venous stasis disease who presents wtih 2 days L hand numbness States she has developed numbness and weakness in her left hand. Spontaneously developed. Having weakness in affected hand as well. No symptoms above the wrist. No other focal numbness or weakness anywhere. TURBINE TECHNICIAN at PMD office sent her here for stroke rule out. Hospital Course 67 yo female with CKD III who presents wiht numbness and weakness of L hand over past few days MRI of the [place] was negative MRI cervical spine suggested degenerative disease as etiology. Advised to do PT/OT Discharged to self skilled nursing Meds Reported Medications Baclofen* (Baclofen*) 10 Mg Tablet, 10 MG PO BID PRN for NEEDED, TAB 08/05/18 Clonazepam (Klonopin) 0.5 Mg Tablet, 1 MG PO DAILY PRN for NEEDED, TAB 08/05/18 Ondansetron Hcl* (Zofran*) 4 Mg Tablet, 4 MG PO TID PRN for NAUSEA AND OR VOMITING, TAB 08/05/18 Hydrocodone/Acetaminophen ([place] 10-325 Tablet) 1 Each Tablet, 1 EACH PO TID PRN for NEEDED, TAB 08/05/18 Clonazepam* (Clonazepam*) 0.5 Mg Tablet, 0.5 MG PO BID for ANXIETY, TAB 08/04/18 Quetiapine Fumarate* (Quetiapine Fumarate*) 100 Mg Tablet, 100 MG PO DAILY for 30 Days, #30 08/04/18 Gabapentin* (Gabapentin*) 300 Mg Capsule, 300 MG PO BID for 30 Days, #60 08/04/18 Hydrocodone/Acetaminophen (Hydrocodone-Acetamin 10-325 mg) 1 Each Tablet, 1 TAB PO Q6H for PAIN 08/04/18 Primary Care Provider Not On Staff Doctor NEHA YADAV MD Aug 27, 2018 13:48
== END 2018-08-27 14:50 | disposition home or self-care (01) | DRG 74 ==
LOC: E/R 13:21 → 6WM 16:12 → SUATTDRO 16:25
PROVIDERS: ADMIT Internal Medicine; ATTEND Internal Medicine
DX: G62.9 Polyneuropathy, unspecified (principal); J45.909 Unspecified asthma, uncomplicated; N18.3 Chronic kidney disease, stage 3 (moderate); G89.4 Chronic pain syndrome; I87.8 Other specified disorders of veins; Z88.0 Allergy status to penicillin; Z86.718 Personal history of other venous thrombosis and embolism
CPT/HCPCS: 36415; 70450; 70551; 71045; 72141; 80048; 80053; 82962; 83036; 84484; 85025; 85610; 85730; 93005; 94664; J1642; J1815; J7030